=== PATIENT | male | born 1940 | race American Indian/Alaskan Native ===

== ENCOUNTER 2017-08-28 09:19 | Emergency (ER) | payer OTHER ==
[2017-08-28 09:19] VITALS: BMI 28.3
[2017-08-28 10:41] VITALS: RESP 18
--- NOTE | 2017-08-28 11:01 | ED PDOC ---
Arrival/HPI - General Chief Complaint: Male Genitourinary Time Seen by Provider: 08/28/17 10:54 Historian: Patient - History of Present Illness Narrative History of Present Illness (Text): 08/28/17 10:55 A 76 year old male, whose past medical history includes colostomy GERD, diverticulitis, and hypertension, presents to the emergency department complaining of difficulty urinating for a couple days. Patient reports his last urination was earlier this morning, however was unable to fully urinate. He currently feels no urge to urinate at this time. States he has spoken to Dr. Howell who recommended patient to visit the ER today. Patient denies any other abdominal pain or any other complaints at this time. PMD: Dr. Valentin Haynes Urologist: Dr. Ronnie Howell Time/Duration: < week (couple of days) Symptom Onset: Sudden Symptom Course: Unchanged Past Medical History - Provider Review Nursing Documentation Reviewed: Yes - Infectious Disease Hx of Infectious Diseases: None - Tetanus Immunization Tetanus Immunization: Unknown - Cardiac Hx Cardiac Disorders: Yes Hx Hypertension: Yes - Pulmonary Hx Chronic Obstructive Pulmonary Disease (COPD): Yes - Neurological Hx Neurological Disorder: Yes Hx Dizziness: Yes (SYNCOPE) - HEENT Hx HEENT Disorder: Yes Hx Cataracts: Yes (RIGHT EYE WITH SX) - Renal Hx Renal Disorder: No - Endocrine/Metabolic Hx Endocrine Disorders: No - Hematological/Oncological Hx Blood Disorders: No - Integumentary Hx Dermatological Disorder: Yes (INCISION LINE HEALING WITH DRY SCABBED AREA.POST COLECTOMY WITH COLOSTOMY R) - Musculoskeletal/Rheumatological Hx Musculoskeletal Disorders: No Hx Falls: No - Gastrointestinal Hx Gastrointestinal Disorders: Yes (SUBTOTAL COLECTOMY WITH COLOSTOMY) Hx Colostomy: Yes Hx Diverticulitis: Yes Hx Gastroesophageal Reflux: Yes Other/Comment: GI BLEED H/O - Psychiatric Hx Psychophysiologic Disorder: Yes (DRINKS BEER OCCASIONALLY QUIT 1977 AND SMOKES CIGARETTES PPD QUIT 1990) Hx Substance Use: No - Surgical History Other/Comment: eye surgery-CATARACT RIGHT. colostomy placement and abdominal surgery-SUBTOTAL COLECTOMY - Anesthesia Hx Anesthesia: Yes Family/Social History - Physician Review Nursing Documentation Reviewed: Yes Family/Social History: No Known Family HX Smoking Status: Former Smoker Hx Alcohol Use: Yes (OCCASIONAL BEER QUIT 1977) Hx Substance Use: No Allergies/Home Meds Allergies/Adverse Reactions: Allergies No Known Allergies Allergy (Verified 03/11/16 11:49) Home Medications: Home Meds Medication Instructions Recorded Confirmed Atorvastatin [Lipitor] 40 mg PO DAILY 12/25/15 03/11/16 Acetaminophen [8 Hour] 650 mg PO Q6H PRN 01/16/16 03/11/16 Metoclopramide [Reglan] 10 mg PO ACHS 01/16/16 03/11/16 Review of Systems - Physician Review All systems were reviewed & negative as marked: Yes - Review of Systems Gastrointestinal: absent: Abdominal Pain Genitourinary Male: Urinary Output Changes (difficulty urinating) Physical Exam - Physical Exam Narrative Physical Exam (Text): Gen: VS reviewed, alert, well developed, well nourished, nontoxic, mild distress. ENT: normal pharynx. Eye: EOMI, PERRL. Neck: no JVD, supple, no adenopathy. CV: regular rate, regular rhythm, no rubs, no murmur, no gallops, S1, S2, pulses equal and strong. Pulm: no distress, clear to auscultation, no wheeze, no rhonchi, breath sounds equal, no rales. Abd: soft, nontender, no suprapubic tenderness, no guarding, no rebound, no rigidity, normal bowel sounds. Colostomy bag in place. Ext: no edema. Skin: good color, no rash, no cyanosis. Psych: responds appropriately to questions, normal affect. Neuro: oriented x 3, CN2-12 intact grossly, motor intact, sensation intact. Vital Signs Reviewed: Yes Vital Signs Temp Pulse Resp BP Pulse Ox 08/28/17 14:01 98.3 F 70 18 112/72 99 08/28/17 13:58 98.3 F 70 18 112/72 99 08/28/17 10:37 98.5 F 66 18 109/58 L 98 Temperature: Afebrile Blood Pressure: Normal Pulse: Regular Respiratory Rate: Normal Appearance: Positive for: Well-Appearing, Non-Toxic, Comfortable Pain Distress: None Mental Status: Positive for: Alert and Oriented X 3 Medical Decision Making ED Course and Treatment: 08/28/17 11:00 Impression: 76 year old male with difficulty urinating. physical exam shows colostomy bag in place, and no suprapubic tenderness; otherwise no acute findings upon examination. Plan: -- Reassess and disposition Progress Notes: 08/28/17 13:33 patient refused urinary catheter, patient was able to provide urine sample in the Emergency department, will tx for uti and refer back to urologist. multiple phone calls have been to dr. howell, referring physician to the Emergency department and no return call. - Lab Interpretations Lab Results: Lab Results 08/28/17 12:15: Urine Color Yellow, Urine Appearance Turbid, Urine pH 6.0, Ur Specific [place] 1.025, Urine Protein 100 H, Urine Glucose (UA) Negative, Urine Ketones Negative, Urine Blood Trace-intact H, Urine Nitrate Negative, Urine Bilirubin Negative, Urine Urobilinogen 0.2, Ur Leukocyte Esterase Large H, Urine RBC 0 - 2, Urine WBC Tntc, Urine Bacteria Many - Scribe Statement The provider has reviewed the documentation as recorded by the Alexey Borges Provider Scribe Attestation: All medical record entries made by the Scribe were at my direction and personally dictated by me. I have reviewed the chart and agree that the record accurately reflects my personal performance of the history, physical exam, medical decision making, and the department course for this patient. I have also personally directed, reviewed, and agree with the discharge instructions and disposition. Disposition/Present on Arrival - Present on Arrival Any Indicators Present on Arrival: No History of DVT/PE: No History of Uncontrolled Diabetes: No Urinary Catheter: No History of Decub. Ulcer: No History Surgical Site Infection Following: None - Disposition Have Diagnosis and Disposition been Completed?: No Diagnosis: Urinary tract infection Disposition: HOME/ ROUTINE Disposition Time: 18:01 Condition: GOOD Discharge Instructions (ExitCare): Urinary Tract Infections in Adults Print Language: [place] Additional Instructions: take the full course of antibiotics. follow up with your urologist as soon as possible. Prescriptions: Ciprofloxacin [Cipro] 500 mg PO BID 7 Days #14 tab Referrals: Valentin Haynes MD [Primary Care Provider] - Follow up with primary Forms: [place] ([place]ian)
[2017-08-28 12:44] LABS: URINE BILIRUBIN NEGATIVE (NEGATIVE); URINE BLOOD TRACE-INTACT (NEGATIVE); URINE GLUCOSE (UA) NEGATIVE (NEGATIVE); URINE LEUKOCYTE ESTERASE LARGE Leu/uL (NEGATIVE); URINE PROTEIN 100 mg/dL (<30 mg/dL); URINE UROBILINOGEN 0.2 E.U./dL (<1 E.U./dL)
[2017-08-28 12:46] LABS: URINE APPEARANCE TURBID (CLEAR); URINE COLOR YELLOW (YELLOW)
[2017-08-28 12:48] LABS: URINE BACTERIA MANY (NEG); URINE RBC 0 - 2 /hpf (0-2); URINE WBC TNTC /hpf (0-6)
[2017-08-28 14:01] VITALS: BP 112/72; PULSE 70; TEMP 98.3; O2SAT 99
== END 2017-08-28 14:01 | disposition home or self-care (01) ==
LOC: ED 09:19
DX: N39.0 Urinary tract infection, site not specified (principal)